=== PATIENT | female | born 1940 | race Caucasian/White ===

== ENCOUNTER 2016-06-12 07:53 | Emergency (ER) | payer MEDICARE, OTHER ==
[~2016-06-12] VITALS: Ht 154.9 cm; Wt 59.0 kg
[2016-06-12 08:45] LABS: Basophils # (auto) 0 uL; Basophils % (auto) 0.3 % (0.0-2.0); Eosinophils # (auto) 0 uL; Eosinophils % (auto) 0.5 % (0.0-7.0); Hematocrit 31.7 % (36.0-46.0); Hemoglobin 10.7 g/dL (12.2-16.2); Lymphocytes # (auto) 0.8 uL; Mean Corpuscular Hemoglobin 33.5 pg (28.0-32.0); Mean Corpuscular Hgb Conc. 33.9 g/dL (32.0-36.0); Mean Corpuscular Volume 98.8 fL (80.0-100.0); Mean Platelet Volume 7.5 fL (7.4-10.4); Monocytes # (auto) 0.3 uL; Monocytes % (auto) 3.1 % (0.0-12.0); Neutrophils # (auto) 7.3 uL; Neutrophils % (auto) 87.1 % (37.0-80.0); Platelet Count (auto) 260 10^3/uL (140-450); Red Cell Distribution Width 14.2 % (11.6-16.0); White Blood Cell 8.3 10^3/uL (4.4-10.8)
[2016-06-12 09:06] LABS: Albumin 3.4 g/dL (3.4-5.0); BUN/Creatinine Ratio 6.7; Bilirubin, Total 0.6 mg/dL (0.2-1.0); Calcium 9.3 mg/dL (8.5-10.1); Potassium 4.4 mmol/L (3.5-5.1); Total Protein 7.4 g/dL (6.4-8.2)
[2016-06-12] MEDS ORDERED: MORPHINE SULF INJ 2 MG/ML SYRINGE 1ML ONE (15:12)
[2016-06-12] MEDS ORDERED: ONDANSETRON HCL 4 MG/2 ML VIAL ONE (15:12)
[2016-06-12] MEDS ORDERED: ONDANSETRON HCL 4 MG/2 ML VIAL IV ONE (15:15)
[2016-06-12] MEDS ORDERED: MORPHINE SULF INJ 2 MG/ML SYRINGE 1ML IV ONE (15:15)
[2016-06-12 15:29] VITALS: BP 180/80
== END 2016-06-12 16:30 | disposition short-term general hospital (02) ==
LOC: EDUNIT# 07:53 → ER 07:53
DX: R42 Dizziness and giddiness (principal); E11.65 Type 2 diabetes mellitus with hyperglycemia; I12.0 Hypertensive chronic kidney disease with stage 5 chronic kidney disease or end stage renal disease; R06.02 Shortness of breath; R55 Syncope and collapse; E11.22 Type 2 diabetes mellitus with diabetic chronic kidney disease; N18.6 End stage renal disease; E78.5 Hyperlipidemia, unspecified; Z86.73 Personal history of transient ischemic attack (TIA), and cerebral infarction without residual deficits; E87.8 Other disorders of electrolyte and fluid balance, not elsewhere classified; Z99.2 Dependence on renal dialysis
CPT/HCPCS: 36415; 71020; 80053; 84484; 85025; 93005; 96374; 96375; 99285; J2270; J2405

== ENCOUNTER 2017-05-16 14:41 | Inpatient (IN) | payer MEDICARE, OTHER ==
[~2017-05-16] VITALS: Ht 157.5 cm; Wt 51.0 kg
[2017-05-16] MEDS ORDERED: SODIUM CHLORIDE 0.9% 500 ML IVB ONE (15:31)
[2017-05-16] MEDS ORDERED: ONDANSETRON HCL 4 MG/2 ML VIAL ONE (16:11)
[2017-05-16] MEDS ORDERED: PANTOPRAZOLE 40 MG/10 ML VIAL IV ONE ×2 (16:14→16:30)
[2017-05-16 16:15] LABS: Basophils # (auto) 0 uL; Basophils % (auto) 0.5 % (0.0-2.0); Eosinophils # (auto) 0 uL; Eosinophils % (auto) 0.6 % (0.0-7.0); Hematocrit 36.8 % (36.0-46.0); Hemoglobin 12.3 g/dL (12.2-16.2); INR 1.04 (0.9-1.15); Lymphocytes # (auto) 1.1 uL; Lymphocytes % (auto) 15.3 % (10.0-50.0); Mean Corpuscular Hemoglobin 32.1 pg (28.0-32.0); Mean Corpuscular Hgb Conc. 33.4 g/dL (32.0-36.0); Mean Corpuscular Volume 96.3 fL (80.0-100.0); Monocytes # (auto) 0.4 uL; Monocytes % (auto) 5.2 % (0.0-12.0); Neutrophils # (auto) 5.5 uL; Neutrophils % (auto) 78.4 % (37.0-80.0); Nucleated Red Blood Cells % 0.2 %; Partial Thromboplastin Time 34.9 sec (22.64-33.71); Platelet Count (auto) 176 10^3/uL (140-450); Prothrombin Time 11.3 sec (9.37-12.3); Red Blood Cells 3.82 10^6/uL (4.0-5.20); Red Cell Distribution Width 13.9 % (11.8-14.3); White Blood Cell 7.1 10^3/uL (4.4-10.8)
[2017-05-16] MEDS ORDERED: LORazepam 2MG/ML-1ML VIAL ONE (16:16)
[2017-05-16 16:20] LABS: Albumin 3.7 g/dL (3.4-5.0); Calcium 8.8 mg/dL (8.5-10.1); Potassium 4.6 mmol/L (3.5-5.1)
[2017-05-16 16:22] LABS: Bilirubin, Total 0.4 mg/dL (0.2-1.0); Total Protein 7.6 g/dL (6.4-8.2)
[2017-05-16 16:27] LABS: Magnesium 2.3 mg/dL (1.6-2.6)
[2017-05-16] MEDS ORDERED: ONDANSETRON HCL 4 MG/2 ML VIAL IV ONE ×2 (16:30→17:15)
[2017-05-16] MEDS ORDERED: LORazepam 2MG/ML-1ML VIAL IV ONE ×2 (16:30→17:15)
[2017-05-16] MEDS ORDERED: ASPirin 81 mg TAB PO ONE (18:00)
[2017-05-16] MEDS ORDERED: DEXTROSE (50%) 50ML SYRG IV PRN (20:30)
[2017-05-16] MEDS ORDERED: MORPHINE SULFATE 4 MG/ML SYR/VIAL IV PRN (20:30)
[2017-05-16] MEDS ORDERED: ONDANSETRON HCL 4 MG/2 ML VIAL IV PRN (20:30)
[2017-05-16] MEDS ORDERED: NITROGLYCERIN 0.4 MG SL TAB SL PRN (20:30)
[2017-05-16] MEDS ORDERED: ACETAMINOPHEN 325 MG TAB PO PRN (20:30)
[2017-05-16] MEDS ORDERED: DOCUSATE SOD 100 MG CAP PO PRN (20:30)
[2017-05-16] MEDS ORDERED: HYDROcodone-ACET 5/325MG TAB PO PRN (20:30)
[2017-05-16 22:05] VITALS: BP 147/69
[2017-05-16] MEDS: HEPARIN SODIUM (PORCINE) 5000 UNITS/ML 1ML VIAL SC SCH (22:23)
[2017-05-16] MEDS: hydrALAZINE HCL 25 MG TAB PO SCH (23:05)
[2017-05-16] MEDS: cloNIDine HCL 0.1 MG TAB PO SCH (23:06)
[2017-05-16] MEDS: ATORVASTATIN 20 MG TAB PO SCH (23:07)
[2017-05-16] MEDS: InsuLIN REG 1unit/0.01ml Soln (100units/ml) SC SCH (23:32)
[2017-05-16] MEDS: ACCU-CHEK COMFORT CURVE STRIP VI SCH (23:32)
[2017-05-17] MEDS ORDERED: SEVE800T8 PO (01:01)
[2017-05-17] MEDS ORDERED: CLON0.1T PO (01:01)
[2017-05-17] MEDS ORDERED: INSLANTI SC (01:01)
[2017-05-17] MEDS ORDERED: CHOL20007 PO (01:01)
[2017-05-17] MEDS ORDERED: OMEP20CA74 PO (01:01)
[2017-05-17] MEDS ORDERED: ATEN-60 PO (01:01)
[2017-05-17] MEDS ORDERED: FOLI1TAB6 PO (01:01)
[2017-05-17] MEDS ORDERED: LISI-646 PO (01:01)
[2017-05-17] MEDS ORDERED: ATOR20TA PO (01:01)
[2017-05-17] MEDS ORDERED: NORT25CA PO (01:01)
[2017-05-17] MEDS ORDERED: CLOP75TA28 PO (01:01)
[2017-05-17] MEDS ORDERED: AMLO5TAB2 PO (01:01)
[2017-05-17] MEDS ORDERED: B-COTAB95 PO (01:01)
[2017-05-17] MEDS ORDERED: ACET-1156 PO (01:01)
[2017-05-17 04:31] VITALS: BP 141/67
[2017-05-17] MEDS ORDERED: PNEUMOCOCCAL VACC POLYS 25 MCG/0.5 ML VIAL IM ONE (04:45)
[2017-05-17 05:42] LABS: Basophils # (auto) 0 uL; Basophils % (auto) 0.5 % (0.0-2.0); Eosinophils # (auto) 0 uL; Eosinophils % (auto) 0.2 % (0.0-7.0); Hematocrit 36.7 % (36.0-46.0); Hemoglobin 12.3 g/dL (12.2-16.2); Lymphocytes # (auto) 0.7 uL; Lymphocytes % (auto) 10.7 % (10.0-50.0); Mean Corpuscular Hemoglobin 32.9 pg (28.0-32.0); Mean Corpuscular Hgb Conc. 33.6 g/dL (32.0-36.0); Mean Corpuscular Volume 98.1 fL (80.0-100.0); Monocytes # (auto) 0.3 uL; Monocytes % (auto) 4.2 % (0.0-12.0); Neutrophils # (auto) 5.2 uL; Neutrophils % (auto) 84.4 % (37.0-80.0); Platelet Count (auto) 151 10^3/uL (140-450); Red Blood Cells 3.74 10^6/uL (4.0-5.20); Red Cell Distribution Width 13.8 % (11.8-14.3); White Blood Cell 6.2 10^3/uL (4.4-10.8)
[2017-05-17] MEDS: ACCU-CHEK COMFORT CURVE STRIP VI SCH ×3 (06:00→17:54)
[2017-05-17] MEDS: InsuLIN REG 1unit/0.01ml Soln (100units/ml) SC SCH ×3 (06:00→18:09)
[2017-05-17 06:04] LABS: BUN/Creatinine Ratio 6.7; Calcium 8.2 mg/dL (8.5-10.1)
[2017-05-17 06:06] LABS: Bilirubin, Total 0.4 mg/dL (0.2-1.0); Total Protein 6.7 g/dL (6.4-8.2)
[2017-05-17 06:14] LABS: Potassium 5.9 mmol/L (3.5-5.1)
[2017-05-17] MEDS: cloNIDine HCL 0.1 MG TAB PO SCH ×3 (06:25→22:33)
[2017-05-17] MEDS: hydrALAZINE HCL 25 MG TAB PO SCH ×3 (06:25→22:34)
[2017-05-17 08:00] VITALS: BP 138/69
[2017-05-17] MEDS: SEVELAMER 800 MG TAB PO SCH ×3 (08:09→17:54)
[2017-05-17] MEDS: amLODIPine BESYLATE 5 MG TAB PO SCH (08:16)
[2017-05-17 09:00] VITALS: BP 139/68
[2017-05-17] MEDS: ASPirin 81 mg TAB PO SCH (09:19)
[2017-05-17] MEDS: FOLIC ACID 1 MG TAB PO SCH (09:19)
[2017-05-17] MEDS: PANTOPRAZOLE 40 MG TAB PO SCH (09:19)
[2017-05-17] MEDS: CLOPIDOGREL BISULFATE 75 MG TAB PO SCH (09:19)
[2017-05-17] MEDS: LISINOPRIL 20 MG TAB PO SCH (09:29)
[2017-05-17] MEDS: HEPARIN SODIUM (PORCINE) 5000 UNITS/ML 1ML VIAL SC SCH ×2 (09:31→22:34)
[2017-05-17] MEDS ORDERED: SODIUM POLYSTYRENE SULF 15GM/60ML SUSP PO ONE (12:00)
[2017-05-17] MEDS ORDERED: VANCOMYCIN PER PHARMACY 0 MG IV SCH (12:15)
[2017-05-17] MEDS ORDERED: PIPERACILLIN-TAZOB 3.375GM 50 ML IV ONE (12:15)
[2017-05-17 13:00] VITALS: BP 131/65
[2017-05-17] MEDS ORDERED: VANCOMYCIN 500 MG in D5W 5% 100 ML IV ONE (13:00)
[2017-05-17 13:31] LABS: Urine Bacteria NONE SEEN /hpf (None Seen); Urine Blood TRACE /uL (Negative); Urine WBC 1 /hpf (0 - 5)
[2017-05-17 17:00] VITALS: BP 143/83
[2017-05-17 22:00] VITALS: BP 160/67
[2017-05-17] MEDS ORDERED: PIPERACILLIN-TAZOB 2.25GM 50 ML IV SCH (22:00)
[2017-05-17] MEDS: ATORVASTATIN 20 MG TAB PO SCH (22:34)
[2017-05-18] VITALS (8 sets, daily range): BP systolic 114–154; BP diastolic 49–70
[2017-05-18] MEDS: TEMAZEPAM 15 MG CAP PO PRN (01:34)
[2017-05-18 06:00] LABS: Albumin 2.8 g/dL (3.4-5.0); Calcium 8.1 mg/dL (8.5-10.1)
[2017-05-18 06:09] LABS: BUN/Creatinine Ratio 7.3; Bilirubin, Total 0.5 mg/dL (0.2-1.0); Total Protein 6.6 g/dL (6.4-8.2)
[2017-05-18 06:11] LABS: Potassium 5.6 mmol/L (3.5-5.1)
[2017-05-18] MEDS: ACCU-CHEK COMFORT CURVE STRIP VI SCH ×5 (06:18→23:40)
[2017-05-18] MEDS: InsuLIN REG 1unit/0.01ml Soln (100units/ml) SC SCH ×5 (06:18→23:41)
[2017-05-18] MEDS: hydrALAZINE HCL 25 MG TAB PO SCH ×3 (06:36→22:55)
[2017-05-18] MEDS: cloNIDine HCL 0.1 MG TAB PO SCH ×3 (06:36→17:56)
[2017-05-18] MEDS: SEVELAMER 800 MG TAB PO SCH ×4 (08:00→17:13)
[2017-05-18] MEDS: amLODIPine BESYLATE 5 MG TAB PO SCH (10:00)
[2017-05-18] MEDS: LISINOPRIL 20 MG TAB PO SCH (10:00)
[2017-05-18 10:17] LABS: Cholesterol 77 mg/dL (< 200); HDL Cholesterol 41 mg/dL (40-59); LDL Cholesterol 30 mg/dL (< 100); Triglycerides 130 mg/dL (< 150)
[2017-05-18] MEDS: PANTOPRAZOLE 40 MG TAB PO SCH ×2 (11:32→15:33)
[2017-05-18] MEDS: ASPirin 81 mg TAB PO SCH ×2 (11:32→15:33)
[2017-05-18] MEDS: CLOPIDOGREL BISULFATE 75 MG TAB PO SCH ×2 (11:33→15:33)
[2017-05-18] MEDS: FOLIC ACID 1 MG TAB PO SCH ×2 (11:33→15:33)
[2017-05-18] MEDS: HEPARIN SODIUM (PORCINE) 5000 UNITS/ML 1ML VIAL SC SCH ×2 (11:34→22:57)
[2017-05-18] MEDS ORDERED: SODIUM CHL 0.9% 1000 ML BAG XX ONE ×2 (12:00→12:15)
[2017-05-18] MEDS ORDERED: METOPROLOL TARTRATE 1MG/1ML-5ML VIAL IV ONE (14:45)
[2017-05-18] MEDS: PIPERACILLIN-TAZOB 2.25GM 50 ML IV SCH (15:32)
[2017-05-18] MEDS ORDERED: VANCOMYCIN 1GM/250ML 250 ML IV ONE (17:30)
[2017-05-18] MEDS ORDERED: CARVEDILOL 3.125 MG TAB PO SCH (22:00)
[2017-05-18] MEDS: ATORVASTATIN 20 MG TAB PO SCH (22:54)
[2017-05-18] MEDS: METOPROLOL TARTRATE 25 MG TAB PO SCH (22:55)
[2017-05-19] MEDS: cloNIDine HCL 0.1 MG TAB PO SCH ×4 (00:22→22:22)
[2017-05-19] MEDS: PIPERACILLIN-TAZOB 2.25GM 50 ML IV SCH (04:04)
[2017-05-19 05:00] VITALS: BP 155/59
[2017-05-19] MEDS: InsuLIN REG 1unit/0.01ml Soln (100units/ml) SC SCH ×3 (06:00→18:19)
[2017-05-19] MEDS: hydrALAZINE HCL 25 MG TAB PO SCH ×3 (06:08→22:23)
[2017-05-19 06:13] LABS: Basophils # (auto) 0 uL; Basophils % (auto) 0.6 % (0.0-2.0); Eosinophils # (auto) 0 uL; Eosinophils % (auto) 0.3 % (0.0-7.0); Hematocrit 31.2 % (36.0-46.0); Lymphocytes # (auto) 0.9 uL; Lymphocytes % (auto) 17.2 % (10.0-50.0); Mean Corpuscular Hemoglobin 32.4 pg (28.0-32.0); Mean Corpuscular Hgb Conc. 32.2 g/dL (32.0-36.0); Mean Corpuscular Volume 100.6 fL (80.0-100.0); Monocytes # (auto) 0.3 uL; Monocytes % (auto) 4.8 % (0.0-12.0); Neutrophils # (auto) 4.2 uL; Neutrophils % (auto) 77.1 % (37.0-80.0); Platelet Count (auto) 150 10^3/uL (140-450); Red Cell Distribution Width 14.2 % (11.8-14.3); White Blood Cell 5.4 10^3/uL (4.4-10.8)
[2017-05-19 06:16] LABS: BUN/Creatinine Ratio 5.4; Calcium 8.1 mg/dL (8.5-10.1); Magnesium 2.7 mg/dL (1.6-2.6); Phosphorus 5.4 mg/dL (2.5-4.90)
[2017-05-19] MEDS: ACCU-CHEK COMFORT CURVE STRIP VI SCH ×3 (06:21→18:18)
[2017-05-19 09:00] VITALS: BP 137/61
[2017-05-19] MEDS ORDERED: EPOETIN ALFA 10,000 UNIT/1 ML VIAL IV ONE (10:45)
[2017-05-19] MEDS ORDERED: HEPARIN SODIUM (PORCINE) 5000 UNITS/ML 1ML VIAL IV ONE (10:45)
[2017-05-19] MEDS: HEPARIN SODIUM (PORCINE) 5000 UNITS/ML 1ML VIAL SC SCH ×2 (11:03→22:20)
[2017-05-19 11:13] LABS: % Iron Saturation 39.8 % (15-50)
[2017-05-19] MEDS: SEVELAMER 800 MG TAB PO SCH ×3 (12:00→18:18)
[2017-05-19] MEDS: METOPROLOL TARTRATE 25 MG TAB PO SCH ×2 (12:54→22:22)
[2017-05-19] MEDS: amLODIPine BESYLATE 5 MG TAB PO SCH (12:54)
[2017-05-19] MEDS: LISINOPRIL 20 MG TAB PO SCH (12:55)
[2017-05-19] MEDS ORDERED: metroNIDAZOLE 500MG/100ML 100 ML IV ONE (13:00)
[2017-05-19] MEDS: ASPirin 81 mg TAB PO SCH (15:17)
[2017-05-19] MEDS: CLOPIDOGREL BISULFATE 75 MG TAB PO SCH (15:17)
[2017-05-19] MEDS: FOLIC ACID 1 MG TAB PO SCH (15:17)
[2017-05-19] MEDS: PANTOPRAZOLE 40 MG TAB PO SCH (15:18)
[2017-05-19 16:36] VITALS: BP 150/59
[2017-05-19] MEDS: metroNIDAZOLE 500 MG TAB PO SCH (21:04)
[2017-05-19 22:00] VITALS: BP 165/82
[2017-05-19] MEDS: ATORVASTATIN 20 MG TAB PO SCH (22:21)
[2017-05-20] VITALS (7 sets, daily range): BP systolic 132–154; BP diastolic 53–70
[2017-05-20] MEDS: InsuLIN REG 1unit/0.01ml Soln (100units/ml) SC SCH ×5 (00:12→23:45)
[2017-05-20] MEDS: ACCU-CHEK COMFORT CURVE STRIP VI SCH ×5 (00:12→23:45)
[2017-05-20] MEDS: metroNIDAZOLE 500 MG TAB PO SCH ×3 (05:58→21:40)
[2017-05-20] MEDS: cloNIDine HCL 0.1 MG TAB PO SCH ×3 (05:59→21:40)
[2017-05-20] MEDS: hydrALAZINE HCL 25 MG TAB PO SCH ×3 (06:05→21:38)
[2017-05-20 06:35] LABS: BUN/Creatinine Ratio 5.8; Calcium 8.1 mg/dL (8.5-10.1); Magnesium 2.2 mg/dL (1.6-2.6); Potassium 3.9 mmol/L (3.5-5.1)
[2017-05-20 06:48] LABS: Basophils # (auto) 0 uL; Basophils % (auto) 0.6 % (0.0-2.0); Eosinophils # (auto) 0 uL; Hematocrit 31.5 % (36.0-46.0); Hemoglobin 10.2 g/dL (12.2-16.2); Lymphocytes # (auto) 0.8 uL; Lymphocytes % (auto) 20.1 % (10.0-50.0); Mean Corpuscular Hemoglobin 31.8 pg (28.0-32.0); Mean Corpuscular Hgb Conc. 32.2 g/dL (32.0-36.0); Mean Corpuscular Volume 98.7 fL (80.0-100.0); Monocytes # (auto) 0.4 uL; Monocytes % (auto) 8.9 % (0.0-12.0); Neutrophils # (auto) 2.8 uL; Neutrophils % (auto) 69.4 % (37.0-80.0); Nucleated Red Blood Cells % 0.4 %; Platelet Count (auto) 173 10^3/uL (140-450); Red Blood Cells 3.19 10^6/uL (4.0-5.20); Red Cell Distribution Width 13.8 % (11.8-14.3); White Blood Cell 4.1 10^3/uL (4.4-10.8)
[2017-05-20] MEDS: SEVELAMER 800 MG TAB PO SCH ×3 (08:12→17:13)
[2017-05-20] MEDS: LISINOPRIL 20 MG TAB PO SCH (09:58)
[2017-05-20] MEDS: ASPirin 81 mg TAB PO SCH (09:59)
[2017-05-20] MEDS: METOPROLOL TARTRATE 25 MG TAB PO SCH ×2 (10:01→21:40)
[2017-05-20] MEDS: amLODIPine BESYLATE 5 MG TAB PO SCH (10:01)
[2017-05-20] MEDS: PANTOPRAZOLE 40 MG TAB PO SCH (10:01)
[2017-05-20] MEDS: HEPARIN SODIUM (PORCINE) 5000 UNITS/ML 1ML VIAL SC SCH ×2 (10:02→21:47)
[2017-05-20] MEDS: CLOPIDOGREL BISULFATE 75 MG TAB PO SCH (10:02)
[2017-05-20] MEDS: FOLIC ACID 1 MG TAB PO SCH (10:02)
[2017-05-20] MEDS: ATORVASTATIN 20 MG TAB PO SCH (21:40)
[2017-05-21] MEDS: TEMAZEPAM 15 MG CAP PO PRN (00:54)
[2017-05-21 05:25] VITALS: BP 136/62
[2017-05-21] MEDS: ACCU-CHEK COMFORT CURVE STRIP VI SCH ×2 (05:34→12:30)
[2017-05-21] MEDS: InsuLIN REG 1unit/0.01ml Soln (100units/ml) SC SCH ×2 (05:36→12:29)
[2017-05-21] MEDS: metroNIDAZOLE 500 MG TAB PO SCH ×2 (05:37→14:25)
[2017-05-21] MEDS: cloNIDine HCL 0.1 MG TAB PO SCH ×2 (05:38→14:25)
[2017-05-21] MEDS: hydrALAZINE HCL 25 MG TAB PO SCH ×2 (05:38→14:25)
[2017-05-21 05:55] LABS: Basophils # (auto) 0 uL; Eosinophils # (auto) 0.2 uL; Eosinophils % (auto) 7.7 % (0.0-7.0); Hematocrit 31.1 % (36.0-46.0); Hemoglobin 10.3 g/dL (12.2-16.2); Lymphocytes # (auto) 1.1 uL; Lymphocytes % (auto) 37.1 % (10.0-50.0); Mean Corpuscular Hemoglobin 32.5 pg (28.0-32.0); Mean Corpuscular Hgb Conc. 33.1 g/dL (32.0-36.0); Mean Corpuscular Volume 98.2 fL (80.0-100.0); Monocytes # (auto) 0.3 uL; Monocytes % (auto) 9.3 % (0.0-12.0); Neutrophils # (auto) 1.3 uL; Neutrophils % (auto) 44.9 % (37.0-80.0); Nucleated Red Blood Cells % 0.2 %; Platelet Count (auto) 186 10^3/uL (140-450); Red Blood Cells 3.17 10^6/uL (4.0-5.20); Red Cell Distribution Width 13.6 % (11.8-14.3)
[2017-05-21 06:04] LABS: BUN/Creatinine Ratio 6.4; Calcium 8.4 mg/dL (8.5-10.1); Potassium 4.1 mmol/L (3.5-5.1)
[2017-05-21] MEDS ORDERED: EPOETIN ALFA 2,000 UNIT/1 ML VIAL IV ONE (07:45)
[2017-05-21] MEDS ORDERED: SODIUM CHL 0.9% 1000 ML BAG XX ONE (07:45)
[2017-05-21] MEDS ORDERED: EPOETIN ALFA 3,000 UNIT/1 ML VIAL IV ONE (07:45)
[2017-05-21] MEDS: SEVELAMER 800 MG TAB PO SCH ×2 (07:53→12:07)
[2017-05-21 08:32] VITALS: BP 128/51
[2017-05-21] MEDS: FOLIC ACID 1 MG TAB PO SCH (09:52)
[2017-05-21] MEDS: ASPirin 81 mg TAB PO SCH (09:52)
[2017-05-21] MEDS: PANTOPRAZOLE 40 MG TAB PO SCH (09:52)
[2017-05-21] MEDS: CLOPIDOGREL BISULFATE 75 MG TAB PO SCH (09:53)
[2017-05-21] MEDS: HEPARIN SODIUM (PORCINE) 5000 UNITS/ML 1ML VIAL SC SCH (09:57)
[2017-05-21] MEDS: amLODIPine BESYLATE 5 MG TAB PO SCH (10:00)
[2017-05-21 11:49] VITALS: BP 177/58
[2017-05-21] MEDS ORDERED: MET500T PO (13:56)
[2017-05-21] MEDS ORDERED: ASPI81CH43 PO (13:56)
[2017-05-21] MEDS: METOPROLOL TARTRATE 25 MG TAB PO SCH (14:26)
[2017-05-21] MEDS: LISINOPRIL 20 MG TAB PO SCH (14:27)
[2017-05-21 16:27] VITALS: BP_SYST 132; BP_DIAS 56; BP_DIAS 76
== END 2017-05-21 17:35 | disposition home or self-care (01) | DRG 871 ==
LOC: EDBD 14:41 → ER 14:41 → TELE 14:42 → TELE-WESTW 22:05
PROVIDERS: ADMIT Nurse Practitioner; ATTEND Internal Medicine
PROC: 5A1D70Z Performance of Urinary Filtration, Intermittent, Less than 6 Hours Per Day (ICD-10-PCS; principal; 2017-05-18)
PROC: 5A09357 Assistance with Respiratory Ventilation, Less than 24 Consecutive Hours, Continuous Positive Airway Pressure (ICD-10-PCS; 2017-05-18)
PROC: 5A1D70Z Performance of Urinary Filtration, Intermittent, Less than 6 Hours Per Day (ICD-10-PCS; 2017-05-19)
PROC: 5A1D70Z Performance of Urinary Filtration, Intermittent, Less than 6 Hours Per Day (ICD-10-PCS; 2017-05-21)
DX: A41.9 Sepsis, unspecified organism (principal); N18.6 End stage renal disease; I63.9 Cerebral infarction, unspecified; G93.41 Metabolic encephalopathy; A04.72 Enterocolitis due to Clostridium difficile, not specified as recurrent; E44.1 Mild protein-calorie malnutrition; E11.22 Type 2 diabetes mellitus with diabetic chronic kidney disease; E11.42 Type 2 diabetes mellitus with diabetic polyneuropathy; I42.9 Cardiomyopathy, unspecified; I12.0 Hypertensive chronic kidney disease with stage 5 chronic kidney disease or end stage renal disease; N25.81 Secondary hyperparathyroidism of renal origin; G81.91 Hemiplegia, unspecified affecting right dominant side; E11.65 Type 2 diabetes mellitus with hyperglycemia; I77.0 Arteriovenous fistula, acquired; E78.5 Hyperlipidemia, unspecified; E87.5 Hyperkalemia; R74.8 Abnormal levels of other serum enzymes; K21.9 Gastro-esophageal reflux disease without esophagitis; Z79.02 Long term (current) use of antithrombotics/antiplatelets; Z99.2 Dependence on renal dialysis; Z79.4 Long term (current) use of insulin; Z79.82 Long term (current) use of aspirin; Z79.899 Other long term (current) drug therapy; Z90.710 Acquired absence of both cervix and uterus; Z68.20 Body mass index [BMI] 20.0-20.9, adult
CPT/HCPCS: 36415; 36600; 70450; 70551; 71045; 80048; 80053; 80061; 80202; 81001; 82550; 82607; 82805; 82962; 83540; 83550; 83605; 83735; 84100; 84484; 85025; 85610; 85730; 87040; 87045; 87081; 87086; 87493; 87899; 90935; 93005; 93306; 93886; 93930; 94660; 94761; 95819; 96361; 96374; 96375; 96376; C9113; J0885; J1642; J1815; J2405; J2543; J3490; J7060; Q4081

== ENCOUNTER 2018-02-23 17:03 | Emergency (ER) | payer MEDICARE, OTHER ==
[~2018-02-23] VITALS: Ht 160 cm; Wt 59.0 kg
[~2018-02-23 17:03] MED LIST: ACET-1156 PO; AMLO5TAB13 PO; ASPI81CH43 PO; ATEN-60 PO; ATOR20TA PO; B-COTAB95 PO; CHOL20007 PO; CLO01T PO; CLOP75TA28 PO; FOLI1TAB6 PO; HYDR-4296 PO; INSLANTI SC; NORT25CA PO; SEVE800T8 PO
[2018-02-23 18:28] LABS: Basophils # (auto) 0 uL; Basophils % (auto) 0.2 % (0.0-2.0); Eosinophils # (auto) 0 uL; Eosinophils % (auto) 0.1 % (0.0-7.0); Hemoglobin 11.4 g/dL (12.2-16.2); Lymphocytes # (auto) 0.5 uL; Lymphocytes % (auto) 4.2 % (10.0-50.0); Mean Corpuscular Hemoglobin 31.5 pg (28.0-32.0); Mean Corpuscular Hgb Conc. 31.6 g/dL (32.0-36.0); Mean Corpuscular Volume 99.7 fL (80.0-100.0); Monocytes # (auto) 0.9 uL; Neutrophils % (auto) 88.5 % (37.0-80.0); Nucleated Red Blood Cells % 0.1 %; Platelet Count (auto) 219 10^3/uL (140-450); Red Blood Cells 3.61 10^6/uL (4.0-5.20); Red Cell Distribution Width 15.7 % (11.8-14.3); White Blood Cell 12.5 10^3/uL (4.4-10.8)
[2018-02-23 18:45] LABS: Albumin 3.7 g/dL (3.4-5.0); BUN/Creatinine Ratio 7.7; Calcium 8.9 mg/dL (8.5-10.1); Magnesium 2.2 mg/dL (1.6-2.6); Potassium 4.7 mmol/L (3.5-5.1)
[2018-02-23 18:50] LABS: Bilirubin, Total 0.4 mg/dL (0.2-1.0)
[2018-02-23] MEDS ORDERED: MORPHINE SULF INJ 2 MG/ML SYRINGE 1ML ONE (18:54)
[2018-02-23] MEDS ORDERED: ONDANSETRON HCL 4 MG/2 ML VIAL ONE (18:54)
[2018-02-23] MEDS ORDERED: ONDANSETRON HCL 4 MG/2 ML VIAL IV ONE ×2 (19:00→23:15)
[2018-02-23] MEDS ORDERED: MORPHINE SULFATE 4 MG/ML SYR/VIAL IV ONE ×2 (19:00→21:30)
[2018-02-24 00:21] LABS: INR 0.98 (0.9-1.15); Partial Thromboplastin Time 25.6 sec (23.78-33.04); Prothrombin Time 10.5 sec (9.27-12.13)
[2018-02-24] MEDS ORDERED: HYDROmorphone HCL 2 MG/ML VL IV ONE (02:00)
[2018-02-24] MEDS ORDERED: PROMETHAZINE HCL 25 MG/ML 1ML IV ONE (02:00)
[2018-02-24 03:42] VITALS: BP 164/73
== END 2018-02-24 03:51 | disposition short-term general hospital (02) ==
LOC: EDBD 17:03 → ER 17:03
DX: S72.091A Other fracture of head and neck of right femur, initial encounter for closed fracture (principal); E11.22 Type 2 diabetes mellitus with diabetic chronic kidney disease; I12.0 Hypertensive chronic kidney disease with stage 5 chronic kidney disease or end stage renal disease; E87.1 Hypo-osmolality and hyponatremia; R79.89 Other specified abnormal findings of blood chemistry; N18.6 End stage renal disease; E78.5 Hyperlipidemia, unspecified; E11.65 Type 2 diabetes mellitus with hyperglycemia; Z99.2 Dependence on renal dialysis; Z79.4 Long term (current) use of insulin; Z86.73 Personal history of transient ischemic attack (TIA), and cerebral infarction without residual deficits; Z90.710 Acquired absence of both cervix and uterus; Z79.82 Long term (current) use of aspirin; Z79.899 Other long term (current) drug therapy; W19.XXXA Unspecified fall, initial encounter; Y93.01 Activity, walking, marching and hiking; Y92.89 Other specified places as the place of occurrence of the external cause; Y99.8 Other external cause status
CPT/HCPCS: 36415; 51702; 70450; 71045; 73552; 73700; 80053; 83735; 84484; 85025; 85610; 85730; 93005; 94761; 96374; 96375; 96376; 99285; J1170; J2270; J2405; J2550